=== PATIENT | male | born 1935 | race Caucasian/White ===

== ENCOUNTER → 2016-08-02 | Outpatient (CLI) | payer MEDICARE ==
[~2016-08-02] MED LIST: OMNIPAQUE 350 MG/ML, 150 ML BOTTLE ONE
== END | disposition home or self-care (01) ==
LOC: CFH 09:28
PROVIDERS: ATTEND Urology
DX: C61 Malignant neoplasm of prostate (principal); N40.3 Nodular prostate with lower urinary tract symptoms; I70.0 Atherosclerosis of aorta; M51.36 Other intervertebral disc degeneration, lumbar region
CPT/HCPCS: 71020; 74178; 82565; Q9967

== ENCOUNTER → 2016-08-02 | Outpatient (CLI) | payer MEDICARE | END | disposition home or self-care (01) | LOC: PETCFH 09:33 | PROVIDERS: ATTEND Urology | DX: C61 Malignant neoplasm of prostate (principal) | CPT/HCPCS: 78306; A9503 ==

== ENCOUNTER 2017-01-19 05:54 | Day surgery (SDC) | payer MEDICARE ==
[2017-01-17 11:43] LABS: ASPARTATE AMINO TRANSFERASE 35 U/L (15-37); BLOOD UREA NITROGEN 14 mg/dL (7-18)
[~2017-01-19] VITALS: Ht 189.2 cm; Wt 69.1 kg
[~2017-01-19 05:54] MED LIST changes: +ASPI-496 PO; +DIGO250T PO; +DOXA2TAB9 PO; +FINA5TAB4 PO; +No meds per pt.; -OMNIPAQUE 350 MG/ML, 150 ML BOTTLE ONE
[2017-01-19 06:23] VITALS: BP 114/69
[2017-01-19] MEDS ORDERED: LACTATED RINGERS 1,000 ML IV SCH (06:27)
[2017-01-19] MEDS ORDERED: LIDOCAINE 1%, 2ML SQ PRN (06:30)
[2017-01-19] MEDS ORDERED: LIDOCAINE 1%, 2ML ONE (06:35)
[2017-01-19] MEDS ORDERED: BUPIVACAINE/PF 0.5% ONE ×2 (07:08→08:14)
[2017-01-19] MEDS ORDERED: DEXAMETHASONE 4 MG/ML, 1ML ONE (07:13)
[2017-01-19] MEDS ORDERED: ONDANSETRON 2MG/ML, 2ML ONE ×2 (07:13→07:27)
[2017-01-19] MEDS ORDERED: PROPOFOL 10 MG/ML, 20ML ONE (07:27)
[2017-01-19] MEDS ORDERED: PHENYLEPHRINE 10 MG/ML ONE (07:27)
[2017-01-19] MEDS ORDERED: SUCCINYLCHOLINE 20 MG/ML, 10ML ONE (07:27)
[2017-01-19] MEDS ORDERED: CEFAZOLIN 1,000 MG ONE (07:27)
[2017-01-19] MEDS ORDERED: DEXAMETHASONE 4 MG/ML, 5ML ONE (07:27)
[2017-01-19] MEDS ORDERED: FENTANYL PF 100 MCG/2ML ONE (07:27)
[2017-01-19] MEDS ORDERED: MIDAZOLAM 1 MG/ML, 2ML IV PRN (08:00)
[2017-01-19] MEDS ORDERED: FENTANYL PF 100 MCG/2ML IV PRN (08:00)
[2017-01-19] MEDS ORDERED: HYDROmorphone 1 MG/ML, 1ML IV PRN (08:00)
[2017-01-19] MEDS ORDERED: LORazepam 2 MG/ML, 1ML IVPush PRN (08:00)
[2017-01-19] MEDS ORDERED: LABETALOL 5MG/ML, 20ML IV PRN (08:00)
[2017-01-19] MEDS ORDERED: ALBUTEROL/IPRATROPIUM 2.5MG/0.5MG, 3 ML NPPB PRN (08:00)
[2017-01-19] MEDS ORDERED: ACETAMINOPHEN 325 MG TABLET PO PRN (08:00)
[2017-01-19] MEDS ORDERED: PROMETHAZINE 25 MG/ML, 1ML IV PRN (08:00)
[2017-01-19] MEDS ORDERED: MEPERIDINE/PF 25MG/0.5ML IVPush PRN (08:00)
[2017-01-19] MEDS ORDERED: hydrALAzine 20 MG/ML, 1ML IV PRN (08:00)
[2017-01-19] MEDS ORDERED: OXYcodone 5 MG/5 ML ORAL.SOL UDC PO PRN (08:00)
[2017-01-19] MEDS ORDERED: ONDANSETRON 2MG/ML, 2ML IVPush PRN (08:00)
== END 2017-01-19 10:00 | disposition home or self-care (01) ==
LOC: OUT 05:54
PROVIDERS: ATTEND Colon & Rectal Surgery
DX: K60.3 Anal fistula (principal); K62.7 Radiation proctitis; I48.91 Unspecified atrial fibrillation; Z85.46 Personal history of malignant neoplasm of prostate; Z79.82 Long term (current) use of aspirin; Z98.890 Other specified postprocedural states; Z87.891 Personal history of nicotine dependence
CPT/HCPCS: 36415; 46275; 80053; 93005; J0330; J0690; J1100; J2370; J2405; J2704; J3010; J3490